=== PATIENT | female | born 1990 | race Two or more races ===

== ENCOUNTER 2020-06-07 13:31 | Emergency (ER) | payer MEDICAID ==
[~2020-06-07] VITALS: Ht 154.9 cm; Wt 76.2 kg
[2020-06-07 13:50] VITALS: BP 122/85
[2020-06-07] MEDS ORDERED: KETOROLAC TROMETH 60MG/2ML VIAL IM ONE (15:30)
== END 2020-06-07 17:37 | disposition home or self-care (01) ==
LOC: ER 13:31
DX: S39.012A Strain of muscle, fascia and tendon of lower back, initial encounter (principal); R10.31 Right lower quadrant pain; Z90.49 Acquired absence of other specified parts of digestive tract; X50.1XXA Overexertion from prolonged static or awkward postures, initial encounter; Y93.89 Activity, other specified; Y92.89 Other specified places as the place of occurrence of the external cause; Y99.8 Other external cause status
CPT/HCPCS: 74176; 81002; 81025; 96372; 99284; J1885

== ENCOUNTER 2020-07-24 16:22 | Emergency (ER) | payer MEDICAID ==
[~2020-07-24] VITALS: Ht 154.9 cm; Wt 81.6 kg
[2020-07-24 16:24] VITALS: BP 131/85
[2020-07-24] MEDS ORDERED: KETOROLAC TROMETH 60MG/2ML VIAL IM ONE (17:30)
== END 2020-07-24 18:16 | disposition home or self-care (01) ==
LOC: ER 16:22
DX: S83.92XA Sprain of unspecified site of left knee, initial encounter (principal); G57.32 Lesion of lateral popliteal nerve, left lower limb; Z90.49 Acquired absence of other specified parts of digestive tract; X58.XXXA Exposure to other specified factors, initial encounter; Y93.01 Activity, walking, marching and hiking; Y92.89 Other specified places as the place of occurrence of the external cause; Y99.8 Other external cause status
CPT/HCPCS: 73562; 93971; 96372; 99284; J1885

== ENCOUNTER 2021-04-03 12:33 | Emergency (ER) | payer MEDICAID, OTHER ==
[~2021-04-03] VITALS: Ht 154.9 cm; Wt 81.6 kg
[2021-04-03] MEDS ORDERED: SODIUM CHLORIDE 0.9% 1,000 ML IVB ONE (12:45)
[2021-04-03] MEDS ORDERED: KETOROLAC TROMETH 30 MG/ML 1ML VIAL IV ONE (12:45)
[2021-04-03 13:23] LABS: Urine Bacteria FEW /hpf (None Seen); Urine Blood TRACE /uL (Negative); Urine Specific Gravity 1.021 (1.001-1.035); Urine WBC 20 /hpf (0 - 5)
[2021-04-03 13:37] LABS: Basophils # (auto) 0.1 10 ^3/uL (0-0.2); Basophils % (auto) 0.8 % (0.0-2.0); Eosinophils # (auto) 0.2 10 ^3/uL (0-0.8); Eosinophils % (auto) 2.1 % (0.0-7.0); Hematocrit 38.4 % (36.0-46.0); Hemoglobin 12.8 g/dL (12.2-16.2); Lymphocytes # (auto) 2.8 10 ^3/uL (0.4-5.4); Lymphocytes % (auto) 31.5 % (10.0-50.0); Mean Corpuscular Hemoglobin 29.2 pg (28.0-32.0); Mean Corpuscular Hgb Conc. 33.3 g/dL (32.0-36.0); Mean Corpuscular Volume 87.7 fL (80.0-100.0); Monocytes # (auto) 0.5 10 ^3/uL (0-1.3); Monocytes % (auto) 6.2 % (0.0-12.0); Neutrophils # (auto) 5.2 10 ^3/uL (1.6-8.6); Neutrophils % (auto) 59.4 % (37.0-80.0); Nucleated Red Blood Cells % 0.1 %; Red Blood Cells 4.38 10^6/uL (4.0-5.20); Red Cell Distribution Width 13.5 % (11.8-14.3); White Blood Cell 8.7 10^3/uL (4.4-10.8)
[2021-04-03 13:51] LABS: Albumin 3.1 g/dL (3.4-5.0); BUN/Creatinine Ratio 13.1; Calcium 8.9 mg/dL (8.5-10.1); Potassium 4.4 mmol/L (3.5-5.1)
[2021-04-03 14:19] LABS: Bilirubin, Total 0.3 mg/dL (0.2-1.0); Total Protein 7.3 g/dL (6.4-8.2)
[2021-04-03 15:17] VITALS: BP 112/72
== END 2021-04-03 15:19 | disposition home or self-care (01) ==
LOC: ER 12:33
DX: N39.0 Urinary tract infection, site not specified (principal); F17.210 Nicotine dependence, cigarettes, uncomplicated; Z87.442 Personal history of urinary calculi; Z90.49 Acquired absence of other specified parts of digestive tract; Z98.890 Other specified postprocedural states
CPT/HCPCS: 36415; 74176; 80053; 81001; 81025; 83690; 85025; 96361; 96374; 99284; J1885; J7030

== ENCOUNTER 2022-01-18 22:47 | Emergency (ER) | payer MEDICAID ==
[~2022-01-18] VITALS: Ht 154.9 cm; Wt 75.0 kg
[2022-01-18 22:47] VITALS: BP 127/86
[2022-01-19 00:43] LABS: Urine Bacteria NONE SEEN /hpf (None Seen); Urine Blood TRACE /uL (Negative); Urine Mucus FEW (None Seen); Urine Specific Gravity 1.027 (1.001-1.035); Urine WBC 134 /hpf (0 - 5)
== END 2022-01-19 05:00 | disposition left against medical advice (07) ==
LOC: ER 22:47
DX: R30.0 Dysuria (principal); Z53.21 Procedure and treatment not carried out due to patient leaving prior to being seen by health care provider
CPT/HCPCS: 81001

== ENCOUNTER 2022-10-18 11:15 | Emergency (ER) | payer MEDICAID ==
[~2022-10-18] VITALS: Ht 154.9 cm; Wt 81.0 kg
[2022-10-18 11:30] VITALS: BP 144/94
[2022-10-18] MEDS ORDERED: ACETAMINOPHEN 500 MG TAB PO ONE (13:00)
[2022-10-18] MEDS ORDERED: ALBU108A5 IN (13:48)
[2022-10-18] MEDS ORDERED: ACET1CAP14 PO (13:48)
[2022-10-18] MEDS ORDERED: AZITTAB PO (13:48)
== END 2022-10-18 13:59 | disposition home or self-care (01) ==
LOC: ER 11:15
DX: J06.9 Acute upper respiratory infection, unspecified (principal); F17.210 Nicotine dependence, cigarettes, uncomplicated; Z20.822 Contact with and (suspected) exposure to COVID-19; Z87.442 Personal history of urinary calculi; Z90.49 Acquired absence of other specified parts of digestive tract; Z98.890 Other specified postprocedural states
CPT/HCPCS: 36415; 71045; 87426; 87804

== ENCOUNTER 2022-10-22 13:35 | Emergency (ER) | payer MEDICAID ==
[~2022-10-22] VITALS: Ht 154.9 cm; Wt 81.6 kg
[~2022-10-22 13:35] MED LIST: ACET1CAP14 PO; ALBU108A5 IN; AZITTAB PO
[2022-10-22 14:31] VITALS: BP 137/86
[2022-10-22] MEDS ORDERED: CEPH-510 PO (16:15)
[2022-10-22] MEDS ORDERED: PROM1SOL4 PO (16:15)
== END 2022-10-22 16:44 | disposition home or self-care (01) ==
LOC: ER 13:35
DX: J20.9 Acute bronchitis, unspecified (principal); F17.210 Nicotine dependence, cigarettes, uncomplicated; R94.31 Abnormal electrocardiogram [ECG] [EKG]; Z90.49 Acquired absence of other specified parts of digestive tract; Z87.442 Personal history of urinary calculi
CPT/HCPCS: 93005

== ENCOUNTER 2023-07-23 16:42 | Emergency (ER) | payer MEDICAID ==
[~2023-07-23] VITALS: Ht 180.3 cm; Wt 88.5 kg
[~2023-07-23 16:42] MED LIST changes: +CEPH-510 PO; +PROM1SOL4 PO
[2023-07-23 17:38] LABS: Urine Bacteria NONE SEEN /hpf (None Seen); Urine Blood 2+ /uL (Negative); Urine Clarity HAZY (Clear); Urine Color Yellow (Yellow); Urine Mucus FEW (None Seen); Urine Protein, UAD TRACE (Negative); Urine Specific Gravity 1.019 (1.001-1.035); Urine Urobilinogen Normal (Negative); Urine WBC 35 /hpf (0 - 5)
[2023-07-23 18:48] VITALS: BP 120/79; PULSE 98; RESP 16; TEMP 99.7; O2SAT 98
[2023-07-23 19:42] LABS: COVID19 ANTIGEN SOFIA FIA NEGATIVE (NEGATIVE); Rapid Influenza A Negative (Negative); Rapid Influenza B Negative (Negative)
[2023-07-23] MEDS ORDERED: cefTRIAXone 1GM/50ML D5W 50 ML IV ONE (20:45)
[2023-07-23] MEDS ORDERED: KETOROLAC TROMETH 30 MG/ML 1ML VIAL IV ONE (20:45)
[2023-07-23] MEDS ORDERED: SODIUM CHLORIDE 0.9% 1,000 ML IV ONE (20:45)
[2023-07-23 20:58] LABS: Basophils # (auto) 0 10 ^3/uL (0-0.2); Basophils % (auto) 0.5 % (0.0-2.0); Eosinophils # (auto) 0 10 ^3/uL (0-0.8); Eosinophils % (auto) 0.7 % (0.0-7.0); Hematocrit 38.7 % (36.0-46.0); Hemoglobin 12.9 g/dL (12.2-16.2); Lymphocytes # (auto) 1.4 10 ^3/uL (0.4-5.4); Lymphocytes % (auto) 24.4 % (10.0-50.0); Mean Corpuscular Hemoglobin 28.8 pg (28.0-32.0); Mean Corpuscular Hgb Conc. 33.3 g/dL (32.0-36.0); Mean Corpuscular Volume 86.6 fL (80.0-100.0); Monocytes # (auto) 0.8 10 ^3/uL (0-1.3); Monocytes % (auto) 14.5 % (0.0-12.0); Neutrophils # (auto) 3.4 10 ^3/uL (1.6-8.6); Neutrophils % (auto) 59.9 % (37.0-80.0); Nucleated Red Blood Cells % 0.1 %; Red Blood Cells 4.47 10^6/uL (4.0-5.20); White Blood Cell 5.6 10^3/uL (4.4-10.8)
[2023-07-23 21:15] LABS: Alanine Aminotransferase 56 U/L (7-40); Albumin 4.6 g/dL (3.2-4.8); Alkaline Phosphatase 80 U/L (46-116); Anion Gap 7 (5-15); Aspartate Aminotransferase 42 U/L (13-40); Bilirubin, Total 0.4 mg/dL (0.2-1.0); Calcium 9.3 mg/dL (8.5-10.1); Carbon Dioxide 26 mmol/L (20-30); Chloride 104 mmol/L (98-107); Glucose 93 mg/dL (74-106); Potassium 3.5 mmol/L (3.5-5.1); Sodium 137 mmol/L (136-145); Total Protein 7.6 g/dL (5.7-8.2)
[2023-07-23 21:19] LABS: BUN/Creatinine Ratio 6.4 (10.0-20.0); Blood Urea Nitrogen < 5 mg/dL (9-23)
[2023-07-23] MEDS ORDERED: PHEN-1045 PO (21:30)
[2023-07-23] MEDS ORDERED: IBUP1TAB5 PO (21:30)
[2023-07-23] MEDS ORDERED: ZOFR4T PO (21:30)
[2023-07-23] MEDS ORDERED: CIP500T PO (21:30)
== END 2023-07-23 22:06 | disposition home or self-care (01) ==
LOC: ER 16:42
DX: N39.0 Urinary tract infection, site not specified (principal); R10.2 Pelvic and perineal pain; R50.9 Fever, unspecified; F17.210 Nicotine dependence, cigarettes, uncomplicated; Z87.442 Personal history of urinary calculi; Z98.890 Other specified postprocedural states; Z20.822 Contact with and (suspected) exposure to COVID-19
CPT/HCPCS: 36415; 76775; 76830; 76856; 80053; 81001; 84702; 85025; 87426; 87804; 96360; 99284; J0696; J1885; J7030

== ENCOUNTER 2023-08-15 08:14 | Inpatient (IN) | payer MEDICAID ==
[~2023-08-15] VITALS: Ht 154.9 cm; Wt 89.1 kg
[~2023-08-15 08:14] MED LIST changes: +CIP500T PO; +IBUP1TAB5 PO; +PHEN-1045 PO; +ZOFR4T PO
[2023-08-15 08:38] LABS: Basophils # (auto) 0 10 ^3/uL (0-0.2); Basophils % (auto) 0.4 % (0.0-2.0); Eosinophils # (auto) 0.3 10 ^3/uL (0-0.8); Hematocrit 39.7 % (36.0-46.0); Hemoglobin 13.4 g/dL (12.2-16.2); Lymphocytes # (auto) 2.9 10 ^3/uL (0.4-5.4); Mean Corpuscular Hgb Conc. 33.7 g/dL (32.0-36.0); Mean Corpuscular Volume 86.1 fL (80.0-100.0); Monocytes # (auto) 0.6 10 ^3/uL (0-1.3); Monocytes % (auto) 6.6 % (0.0-12.0); Neutrophils # (auto) 5.5 10 ^3/uL (1.6-8.6); Red Blood Cells 4.61 10^6/uL (4.0-5.20); Red Cell Distribution Width 13.7 % (11.8-14.3); White Blood Cell 9.3 10^3/uL (4.4-10.8)
[2023-08-15 08:57] LABS: Alanine Aminotransferase 52 U/L (7-40); Albumin 4.5 g/dL (3.2-4.8); Alkaline Phosphatase 78 U/L (46-116); Anion Gap 8 (5-15); Aspartate Aminotransferase 35 U/L (13-40); BUN/Creatinine Ratio 11.3 (10.0-20.0); Bilirubin, Total 0.5 mg/dL (0.2-1.0); Blood Urea Nitrogen 8 mg/dL (9-23); Calcium 9.5 mg/dL (8.5-10.1); Carbon Dioxide 25 mmol/L (20-30); Chloride 108 mmol/L (98-107); Glucose 86 mg/dL (74-106); Potassium 3.6 mmol/L (3.5-5.1); Sodium 141 mmol/L (136-145); Total Protein 7.1 g/dL (5.7-8.2)
[2023-08-15 09:16] LABS: Lipase 60 U/L (12-53)
[2023-08-15 09:18] LABS: Urine Bacteria NONE SEEN /hpf (None Seen); Urine Blood 1+ /uL (Negative); Urine Clarity HAZY (Clear); Urine Color Yellow (Yellow); Urine Mucus FEW (None Seen); Urine Protein, UAD 1+ (Negative); Urine Specific Gravity 1.035 (1.001-1.035); Urine Urobilinogen Normal (Negative); Urine WBC 18 /hpf (0 - 5)
[2023-08-15 09:24] LABS: Amphetamine Screen, Urine Neg (NEGATIVE)
[2023-08-15 09:26] LABS: Barbiturate Scree,Urine Neg (NEGATIVE); Benzodiazephine Screen, Urine Neg (NEGATIVE); Cannabinoid Screen, Urine Neg (NEGATIVE); Cocaine Screen, Urine Neg (NEGATIVE); Opiate Scree,Urine Neg (NEGATIVE); Phencyclidine Screen, Urine Neg (NEGATIVE)
[2023-08-15] MEDS: cefTRIAXone SOD 1,000 MG VL IM ONE (10:55)
[2023-08-15 14:28] VITALS: PULSE 83; RESP 18; O2SAT 98
[2023-08-15] MEDS ORDERED: DOCUSATE SOD 100 MG CAP PO PRN (14:45)
[2023-08-15] MEDS: cefTRIAXone 1GM/50ML D5W 50 ML IV ONE (15:27)
[2023-08-15] MEDS: SODIUM CHLORIDE 0.9% 1,000 ML IV SCH (17:27)
[2023-08-15] MEDS: ONDANSETRON HCL 4 MG/2 ML VIAL IV PRN (17:29)
[2023-08-15] MEDS: MORPHINE SULFATE INJ 2 MG/ml SYRG IV PRN (17:31)
[2023-08-15] MEDS: DICYCLOMINE HCL 10 MG CAP PO SCH (18:12)
[2023-08-15] MEDS: metroNIDAZOLE 500MG/100ML 100 ML IV SCH (22:49)
[2023-08-16 01:50] VITALS: PULSE 63; RESP 17; O2SAT 97
[2023-08-16 06:08] LABS: Basophils # (auto) 0.1 10 ^3/uL (0-0.2); Basophils % (auto) 0.9 % (0.0-2.0); Eosinophils # (auto) 0.4 10 ^3/uL (0-0.8); Eosinophils % (auto) 3.7 % (0.0-7.0); Hematocrit 34.7 % (36.0-46.0); Hemoglobin 11.4 g/dL (12.2-16.2); Lymphocytes # (auto) 2.6 10 ^3/uL (0.4-5.4); Lymphocytes % (auto) 27.1 % (10.0-50.0); Mean Corpuscular Hemoglobin 28.3 pg (28.0-32.0); Mean Corpuscular Volume 85.7 fL (80.0-100.0); Monocytes # (auto) 0.6 10 ^3/uL (0-1.3); Monocytes % (auto) 5.7 % (0.0-12.0); Neutrophils # (auto) 6.1 10 ^3/uL (1.6-8.6); Neutrophils % (auto) 62.6 % (37.0-80.0); Red Blood Cells 4.04 10^6/uL (4.0-5.20); Red Cell Distribution Width 13.6 % (11.8-14.3); White Blood Cell 9.8 10^3/uL (4.4-10.8)
[2023-08-16 06:20] LABS: Alanine Aminotransferase 50 U/L (7-40); Albumin 3.7 g/dL (3.2-4.8); Alkaline Phosphatase 69 U/L (46-116); Anion Gap 6 (5-15); Aspartate Aminotransferase 32 U/L (13-40); BUN/Creatinine Ratio 8.6 (10.0-20.0); Blood Urea Nitrogen 6 mg/dL (9-23); Calcium 8.3 mg/dL (8.7-10.4); Carbon Dioxide 26 mmol/L (20-30); Chloride 107 mmol/L (98-107); Glucose 81 mg/dL (74-106); Lipase 45 U/L (12-53); Potassium 3.2 mmol/L (3.5-5.1); Sodium 139 mmol/L (136-145)
[2023-08-16 06:21] LABS: Bilirubin, Total 0.3 mg/dL (0.2-1.0); Total Protein 6.2 g/dL (5.7-8.2)
[2023-08-16 07:30] VITALS: PULSE 64; RESP 12; O2SAT 97
[2023-08-16] MEDS: cefTRIAXone 1GM/50ML D5W 50 ML IV ONE (13:24)
[2023-08-16 15:39] VITALS: BP 103/64; PULSE 66; RESP 17; TEMP 98.4; O2SAT 98
[2023-08-16] MEDS: POTASSIUM CHL 20 Meq TABLET PO ONE (18:17)
[2023-08-16 20:00] VITALS: BP 99/46; PULSE 73; RESP 16; TEMP 98; O2SAT 96
[2023-08-16 22:00] VITALS: BP 99/56; PULSE 73; RESP 16; TEMP 98; O2SAT 96
[2023-08-17 05:00] VITALS: BP 108/58; PULSE 65; RESP 16; TEMP 98.1; O2SAT 97
[2023-08-17 09:06] VITALS: BP 97/49; PULSE 78; RESP 15; TEMP 98.4; O2SAT 94
[2023-08-17] MEDS ORDERED: LEVO500T91 PO (09:41)
[2023-08-17] MEDS: cefTRIAXone 1GM/50ML D5W 50 ML IV SCH (09:44)
[2023-08-17] MEDS ORDERED: DICY10CA PO (09:48)
== END 2023-08-17 11:50 | disposition home or self-care (01) | DRG 249 ==
LOC: ER 08:14 → OVERFLOW 15:02 → EAST 08-16 15:34
PROVIDERS: ADMIT Nurse Practitioner Family; ATTEND Family Medicine
DX: K52.9 Noninfective gastroenteritis and colitis, unspecified (principal); E86.0 Dehydration; N83.201 Unspecified ovarian cyst, right side; N39.0 Urinary tract infection, site not specified; Z87.442 Personal history of urinary calculi; Z97.5 Presence of (intrauterine) contraceptive device; Z98.891 History of uterine scar from previous surgery
CPT/HCPCS: 36415; 74176; 76830; 76856; 80053; 80307; 81001; 83690; 84702; 85025; 87045; 87086; 87427; 87493; 96372; G0378; J0696; J2405; J3490

== ENCOUNTER 2023-10-21 19:09 | Emergency (ER) | payer MEDICAID ==
[~2023-10-21] VITALS: Ht 157.5 cm; Wt 88.1 kg
[~2023-10-21 19:09] MED LIST changes: +DICY10CA PO; +LEVO500T91 PO
[2023-10-21] MEDS: ONDANSETRON ODT 4 MG TAB PO ONE (20:43)
[2023-10-21] MEDS: HYDROmorphone HCL 2 MG/ML VL/or syr IM ONE (20:43)
[2023-10-21 20:50] LABS: Urine Bacteria FEW /hpf (None Seen); Urine Blood 2+ /uL (Negative); Urine Clarity Turbid (Clear); Urine Color Light-Orange (Yellow); Urine Mucus FEW (None Seen); Urine Protein, UAD 1+ (Negative); Urine Specific Gravity 1.028 (1.001-1.035); Urine Urobilinogen Normal (Negative); Urine WBC 101 /hpf (0 - 5); Urine pH 5.5 (5.0-9.0)
[2023-10-21 21:03] LABS: Basophils # (auto) 0.1 10 ^3/uL (0-0.2); Basophils % (auto) 0.6 % (0.0-2.0); Eosinophils # (auto) 0.4 10 ^3/uL (0-0.8); Eosinophils % (auto) 3.6 % (0.0-7.0); Hematocrit 39.1 % (36.0-46.0); Hemoglobin 13.3 g/dL (12.2-16.2); Lymphocytes # (auto) 3.4 10 ^3/uL (0.4-5.4); Mean Corpuscular Hemoglobin 29.1 pg (28.0-32.0); Mean Corpuscular Hgb Conc. 33.9 g/dL (32.0-36.0); Mean Corpuscular Volume 85.8 fL (80.0-100.0); Monocytes # (auto) 0.7 10 ^3/uL (0-1.3); Monocytes % (auto) 6.9 % (0.0-12.0); Neutrophils # (auto) 6.1 10 ^3/uL (1.6-8.6); Neutrophils % (auto) 56.9 % (37.0-80.0); Nucleated Red Blood Cells % 0.1 %; Red Blood Cells 4.56 10^6/uL (4.0-5.20); Red Cell Distribution Width 13.7 % (11.8-14.3); White Blood Cell 10.7 10^3/uL (4.4-10.8)
[2023-10-21 21:21] LABS: Alanine Aminotransferase 41 U/L (7-40); Albumin 4.5 g/dL (3.2-4.8); Alkaline Phosphatase 71 U/L (46-116); Anion Gap 8 (5-15); Aspartate Aminotransferase 28 U/L (13-40); BUN/Creatinine Ratio 10.3 (10.0-20.0); Bilirubin, Total 0.3 mg/dL (0.2-1.0); Blood Urea Nitrogen 8 mg/dL (9-23); Calcium 9.5 mg/dL (8.7-10.4); Carbon Dioxide 24 mmol/L (20-30); Chloride 107 mmol/L (98-107); Glucose 100 mg/dL (74-106); Lipase 38 U/L (12-53); Potassium 3.4 mmol/L (3.5-5.1); Sodium 139 mmol/L (136-145); Total Protein 7.5 g/dL (5.7-8.2)
[2023-10-21] MEDS ORDERED: BACDST PO (22:22)
[2023-10-21] MEDS ORDERED: ACE3T PO (22:22)
[2023-10-21] MEDS ORDERED: IBUP-1455 PO (22:22)
[2023-10-21 22:55] VITALS: TEMP 97.6
[2023-10-21] MEDS: SULFAMETHOX W/TRIMETH(800/160MG) DS TAB PO ONE (22:57)
[2023-10-21 22:58] VITALS: O2SAT 95
[2023-10-21 23:00] VITALS: BP 128/76; PULSE 76; RESP 18
[2023-10-21] MEDS: KETOROLAC TROMETH 60MG/2ML VIAL IM ONE (23:56)
== END 2023-10-22 00:03 | disposition home or self-care (01) ==
LOC: ER 19:09
DX: N39.0 Urinary tract infection, site not specified (principal); F17.210 Nicotine dependence, cigarettes, uncomplicated; Z32.02 Encounter for pregnancy test, result negative; Z90.49 Acquired absence of other specified parts of digestive tract; Z87.442 Personal history of urinary calculi
CPT/HCPCS: 36415; 74176; 80053; 81001; 81025; 83690; 85025; 96372; 99285; J1170; J1885; Q0162

== ENCOUNTER 2023-10-26 20:27 | Emergency (ER) | payer MEDICAID ==
[~2023-10-26] VITALS: Ht 157.5 cm; Wt 88.1 kg
[~2023-10-26 20:27] MED LIST changes: +ACE3T PO; +BACDST PO; +IBUP-1455 PO
[2023-10-26 22:08] LABS: Basophils # (auto) 0.1 10 ^3/uL (0-0.2); Basophils % (auto) 0.7 % (0.0-2.0); Eosinophils # (auto) 0.5 10 ^3/uL (0-0.8); Eosinophils % (auto) 4.1 % (0.0-7.0); Hematocrit 38.1 % (36.0-46.0); Hemoglobin 12.8 g/dL (12.2-16.2); Lymphocytes # (auto) 3.9 10 ^3/uL (0.4-5.4); Lymphocytes % (auto) 33.8 % (10.0-50.0); Mean Corpuscular Hgb Conc. 33.5 g/dL (32.0-36.0); Mean Corpuscular Volume 86.7 fL (80.0-100.0); Monocytes # (auto) 0.7 10 ^3/uL (0-1.3); Monocytes % (auto) 6.5 % (0.0-12.0); Neutrophils # (auto) 6.3 10 ^3/uL (1.6-8.6); Neutrophils % (auto) 54.9 % (37.0-80.0); Red Cell Distribution Width 13.8 % (11.8-14.3); White Blood Cell 11.4 10^3/uL (4.4-10.8)
[2023-10-26 22:23] LABS: INR 0.96 (0.9-1.15); Partial Thromboplastin Time 27.3 SEC (24.5-34.5); Prothrombin Time 10.2 sec (9.3-11.8)
[2023-10-26 22:29] LABS: Alanine Aminotransferase 32 U/L (7-40); Albumin 4.5 g/dL (3.2-4.8); Alkaline Phosphatase 78 U/L (46-116); Anion Gap 7 (5-15); Aspartate Aminotransferase 22 U/L (13-40); BUN/Creatinine Ratio 14.4 (10.0-20.0); Blood Urea Nitrogen 13 mg/dL (9-23); Calcium 9.2 mg/dL (8.7-10.4); Carbon Dioxide 23 mmol/L (20-30); Chloride 106 mmol/L (98-107); Glucose 85 mg/dL (74-106); Lipase 43 U/L (12-53); Potassium 3.9 mmol/L (3.5-5.1); Sodium 136 mmol/L (136-145)
[2023-10-26 22:30] LABS: Bilirubin, Total 0.2 mg/dL (0.2-1.0); Total Protein 7.4 g/dL (5.7-8.2)
[2023-10-26 22:48] LABS: Urine Bacteria FEW /hpf (None Seen); Urine Blood Negative /uL (Negative); Urine Budding Yeast OCCASIONAL /hpf (None Seen); Urine Clarity Turbid (Clear); Urine Color Light-Yellow (Yellow); Urine Protein, UAD TRACE (Negative); Urine Specific Gravity 1.026 (1.001-1.035); Urine Urobilinogen Normal (Negative); Urine WBC 41 /hpf (0 - 5)
[2023-10-27 01:50] VITALS: BP 120/75; PULSE 78; RESP 18; TEMP 98.5; O2SAT 98
[2023-10-27] MEDS: SODIUM CHLORIDE 0.9% 1,000 ML IVB ONE (02:01)
[2023-10-27] MEDS ORDERED: CEPH500T PO (02:10)
[2023-10-27] MEDS ORDERED: ACET500T58 PO (02:10)
[2023-10-27] MEDS ORDERED: PHEN95TA10 PO (02:10)
== END 2023-10-27 02:56 | disposition home or self-care (01) ==
LOC: ER 20:27
DX: N39.0 Urinary tract infection, site not specified (principal); N83.201 Unspecified ovarian cyst, right side; F17.210 Nicotine dependence, cigarettes, uncomplicated; Z87.442 Personal history of urinary calculi; Z90.49 Acquired absence of other specified parts of digestive tract
CPT/HCPCS: 36415; 74176; 80053; 81001; 83605; 83690; 85025; 85610; 85730; 87040; 96360; 99284; J7030

== ENCOUNTER 2023-10-27 16:49 | Inpatient (IN) | payer MEDICAID ==
[~2023-10-27] VITALS: Ht 157.5 cm; Wt 90.0 kg
[~2023-10-27 16:49] MED LIST changes: +ACET500T58 PO; +CEPH500T PO; +PHEN95TA10 PO
[2023-10-27 18:41] LABS: Basophils # (auto) 0.1 10 ^3/uL (0-0.2); Basophils % (auto) 0.5 % (0.0-2.0); Eosinophils # (auto) 0.3 10 ^3/uL (0-0.8); Eosinophils % (auto) 1.8 % (0.0-7.0); Hematocrit 39.2 % (36.0-46.0); Hemoglobin 12.7 g/dL (12.2-16.2); Lymphocytes # (auto) 2.8 10 ^3/uL (0.4-5.4); Lymphocytes % (auto) 19.1 % (10.0-50.0); Mean Corpuscular Hemoglobin 28.1 pg (28.0-32.0); Mean Corpuscular Hgb Conc. 32.5 g/dL (32.0-36.0); Mean Corpuscular Volume 86.5 fL (80.0-100.0); Monocytes # (auto) 0.6 10 ^3/uL (0-1.3); Monocytes % (auto) 4.2 % (0.0-12.0); Neutrophils % (auto) 74.4 % (37.0-80.0); Red Blood Cells 4.53 10^6/uL (4.0-5.20); Red Cell Distribution Width 13.7 % (11.8-14.3); White Blood Cell 14.7 10^3/uL (4.4-10.8)
[2023-10-27 18:59] LABS: Alanine Aminotransferase 58 U/L (7-40); Albumin 4.4 g/dL (3.2-4.8); Alkaline Phosphatase 97 U/L (46-116); Anion Gap 9 (5-15); Aspartate Aminotransferase 85 U/L (13-40); BUN/Creatinine Ratio 9.6 (10.0-20.0); Blood Urea Nitrogen 8 mg/dL (9-23); Calcium 8.8 mg/dL (8.7-10.4); Carbon Dioxide 21 mmol/L (20-30); Chloride 106 mmol/L (98-107); Glucose 145 mg/dL (74-106); Lipase 36 U/L (12-53); Potassium 3.6 mmol/L (3.5-5.1); Sodium 136 mmol/L (136-145)
[2023-10-27 19:00] LABS: Bilirubin, Total 0.3 mg/dL (0.2-1.0); Total Protein 7.4 g/dL (5.7-8.2)
[2023-10-27] MEDS: MORPHINE SULFATE INJ 2 MG/ml SYRG IM ONE (19:35)
[2023-10-27] MEDS: MORPHINE SULFATE INJ 2 MG/ml SYRG ONE (19:36)
[2023-10-27] MEDS: ONDANSETRON ODT 4 MG TAB ONE (19:36)
[2023-10-27] MEDS: ONDANSETRON ODT 4 MG TAB PO ONE (19:36)
[2023-10-27 20:20] LABS: Amphetamine Screen, Urine Neg (NEGATIVE); Benzodiazephine Screen, Urine Neg (NEGATIVE)
[2023-10-27 20:21] LABS: Barbiturate Scree,Urine Neg (NEGATIVE); Cannabinoid Screen, Urine Neg (NEGATIVE); Cocaine Screen, Urine Neg (NEGATIVE); Opiate Scree,Urine Pos (NEGATIVE); Phencyclidine Screen, Urine Neg (NEGATIVE)
[2023-10-27 20:57] LABS: Urine Bacteria FEW /hpf (None Seen); Urine Blood Negative /uL (Negative); Urine Clarity Turbid (Clear); Urine Color Yellow (Yellow); Urine Mucus FEW (None Seen); Urine Protein, UAD 1+ (Negative); Urine Specific Gravity 1.028 (1.001-1.035); Urine Urobilinogen Normal (Negative); Urine WBC 33 /hpf (0 - 5); Urine pH 5.5 (5.0-9.0)
[2023-10-27] MEDS ORDERED: cefTRIAXone 2GM/50ML D5W 50 ML IV ONE (21:15)
[2023-10-27] MEDS: PHENAZOPYRIDINE HCL 100 MG TAB PO ONE (21:30)
[2023-10-27 21:38] VITALS: PULSE 80; RESP 18; O2SAT 96
[2023-10-27] MEDS: cefTRIAXone 1GM/50ML D5W 50 ML IV ONE ×2 (21:45)
[2023-10-27] MEDS ORDERED: DOCUSATE SOD 100 MG CAP PO PRN (22:30)
[2023-10-27 22:32] VITALS: PULSE 75; RESP 14; O2SAT 97
[2023-10-27] MEDS: SODIUM CHLORIDE 0.9% 1,000 ML IV SCH (23:12)
[2023-10-27] MEDS ORDERED: NITROGLYCERIN 0.4 MG SL TAB SL PRN (23:15)
[2023-10-27] MEDS ORDERED: MORPHINE SULFATE INJ 2 MG/ml SYRG IV PRN (23:15)
[2023-10-28] MEDS: ONDANSETRON HCL 4 MG/2 ML VIAL IV PRN (00:17)
[2023-10-28] MEDS: MORPHINE SULFATE INJ 2 MG/ml SYRG IV PRN (00:17)
[2023-10-28 03:40] VITALS: BP_SYST 90; BP_DIAS 36; BP_DIAS 55; PULSE 75; RESP 17; TEMP 98; O2SAT 98
[2023-10-28 06:18] LABS: Basophils # (auto) 0 10 ^3/uL (0-0.2); Basophils % (auto) 0.5 % (0.0-2.0); Eosinophils # (auto) 0.2 10 ^3/uL (0-0.8); Eosinophils % (auto) 2.6 % (0.0-7.0); Hematocrit 34.7 % (36.0-46.0); Hemoglobin 11.7 g/dL (12.2-16.2); Lymphocytes # (auto) 2.7 10 ^3/uL (0.4-5.4); Lymphocytes % (auto) 30.8 % (10.0-50.0); Mean Corpuscular Hemoglobin 29.1 pg (28.0-32.0); Mean Corpuscular Hgb Conc. 33.7 g/dL (32.0-36.0); Mean Corpuscular Volume 86.4 fL (80.0-100.0); Monocytes # (auto) 0.6 10 ^3/uL (0-1.3); Monocytes % (auto) 6.9 % (0.0-12.0); Neutrophils # (auto) 5.3 10 ^3/uL (1.6-8.6); Neutrophils % (auto) 59.2 % (37.0-80.0); Red Blood Cells 4.01 10^6/uL (4.0-5.20); Red Cell Distribution Width 13.8 % (11.8-14.3); White Blood Cell 8.9 10^3/uL (4.4-10.8)
[2023-10-28 06:46] LABS: Alanine Aminotransferase 48 U/L (7-40); Alkaline Phosphatase 89 U/L (46-116); Anion Gap 9 (5-15); Aspartate Aminotransferase 41 U/L (13-40); BUN/Creatinine Ratio 8.8 (10.0-20.0); Blood Urea Nitrogen 7 mg/dL (9-23); Calcium 8.8 mg/dL (8.7-10.4); Carbon Dioxide 22 mmol/L (20-30); Chloride 107 mmol/L (98-107); Glucose 136 mg/dL (74-106); Potassium 3.3 mmol/L (3.5-5.1); Sodium 138 mmol/L (136-145)
[2023-10-28 06:47] LABS: Albumin 3.8 g/dL (3.2-4.8); Bilirubin, Total 0.3 mg/dL (0.2-1.0); Total Protein 6.3 g/dL (5.7-8.2)
[2023-10-28] MEDS: HYDROcodone-ACET 5/325MG TAB PO PRN (07:15)
[2023-10-28 07:30] VITALS: TEMP 36.7
[2023-10-28 09:00] VITALS: BP 107/56; PULSE 76; RESP 18; TEMP 98.2; O2SAT 98
[2023-10-28 13:00] VITALS: BP 106/48; PULSE 75; RESP 18; TEMP 97.5; O2SAT 96
[2023-10-28 17:00] VITALS: BP 106/75; PULSE 75; RESP 18; TEMP 97.9; O2SAT 96
[2023-10-28 20:12] VITALS: RESP 16
[2023-10-28] MEDS: IBUPROFEN 600 MG TAB PO PRN (20:52)
[2023-10-28] MEDS: cefTRIAXone 1GM/50ML D5W 50 ML IV SCH (23:30)
[2023-10-29 06:08] LABS: Basophils # (auto) 0.1 10 ^3/uL (0-0.2); Basophils % (auto) 0.9 % (0.0-2.0); Eosinophils # (auto) 0.4 10 ^3/uL (0-0.8); Eosinophils % (auto) 6.1 % (0.0-7.0); Hematocrit 35.9 % (36.0-46.0); Hemoglobin 12.1 g/dL (12.2-16.2); Lymphocytes # (auto) 2.9 10 ^3/uL (0.4-5.4); Lymphocytes % (auto) 46.4 % (10.0-50.0); Mean Corpuscular Hemoglobin 29.4 pg (28.0-32.0); Mean Corpuscular Hgb Conc. 33.6 g/dL (32.0-36.0); Mean Corpuscular Volume 87.5 fL (80.0-100.0); Monocytes # (auto) 0.5 10 ^3/uL (0-1.3); Neutrophils # (auto) 2.4 10 ^3/uL (1.6-8.6); Neutrophils % (auto) 38.6 % (37.0-80.0); Nucleated Red Blood Cells % 0.1 %; Red Blood Cells 4.11 10^6/uL (4.0-5.20); Red Cell Distribution Width 13.6 % (11.8-14.3); White Blood Cell 6.3 10^3/uL (4.4-10.8)
[2023-10-29 06:28] LABS: Anion Gap 6 (5-15); Carbon Dioxide 23 mmol/L (20-30); Chloride 107 mmol/L (98-107); Potassium 4.1 mmol/L (3.5-5.1); Sodium 136 mmol/L (136-145)
[2023-10-29 06:29] LABS: Calcium 9.1 mg/dL (8.5-10.1)
[2023-10-29 06:34] LABS: BUN/Creatinine Ratio 9.2 (10.0-20.0); Blood Urea Nitrogen 7 mg/dL (9-23); Glucose 111 mg/dL (74-106)
[2023-10-29 07:30] VITALS: TEMP 36.6
[2023-10-29 09:00] VITALS: BP 96/61; PULSE 65; RESP 16; TEMP 97.7; O2SAT 97
[2023-10-29 13:00] VITALS: BP 120/72; PULSE 71; RESP 18; TEMP 98.1; O2SAT 96
[2023-10-29] MEDS: OXYCODONE W/ ACETAMINOPHEN 5/325MG TABLET PO PRN (16:27)
[2023-10-29 17:00] VITALS: BP 105/60; PULSE 92; RESP 16; TEMP 98.2; O2SAT 96
[2023-10-29 20:00] VITALS: PULSE 81; RESP 16; TEMP 36.8
[2023-10-29 21:00] VITALS: BP 112/67; PULSE 75; RESP 20; TEMP 98.2; O2SAT 93
[2023-10-30 04:00] VITALS: BP 101/54; PULSE 56; RESP 21; TEMP 98; O2SAT 94
[2023-10-30 07:05] LABS: Basophils # (auto) 0.1 10 ^3/uL (0-0.2); Basophils % (auto) 0.8 % (0.0-2.0); Eosinophils # (auto) 0.5 10 ^3/uL (0-0.8); Hematocrit 37.9 % (36.0-46.0); Hemoglobin 12.8 g/dL (12.2-16.2); Lymphocytes # (auto) 3.3 10 ^3/uL (0.4-5.4); Lymphocytes % (auto) 34.4 % (10.0-50.0); Mean Corpuscular Hemoglobin 29.3 pg (28.0-32.0); Mean Corpuscular Hgb Conc. 33.8 g/dL (32.0-36.0); Mean Corpuscular Volume 86.7 fL (80.0-100.0); Monocytes # (auto) 0.7 10 ^3/uL (0-1.3); Monocytes % (auto) 7.3 % (0.0-12.0); Neutrophils # (auto) 5.1 10 ^3/uL (1.6-8.6); Neutrophils % (auto) 52.5 % (37.0-80.0); Nucleated Red Blood Cells % 0.1 %; Red Blood Cells 4.37 10^6/uL (4.0-5.20); Red Cell Distribution Width 13.2 % (11.8-14.3); White Blood Cell 9.7 10^3/uL (4.4-10.8)
[2023-10-30 07:27] LABS: Chloride 105 mmol/L (98-107); Potassium 3.9 mmol/L (3.5-5.1); Sodium 137 mmol/L (136-145)
[2023-10-30 07:28] LABS: Anion Gap 8 (5-15); Calcium 9.5 mg/dL (8.5-10.1); Carbon Dioxide 24 mmol/L (20-30)
[2023-10-30 07:33] LABS: BUN/Creatinine Ratio 15.3 (10.0-20.0); Blood Urea Nitrogen 11 mg/dL (9-23); Glucose 95 mg/dL (74-106)
[2023-10-30 08:05] VITALS: PULSE 77; RESP 16; O2SAT 97
[2023-10-30] MEDS: diphenhdrAMINE HCL 25 MG CAP PO ONE (08:19)
[2023-10-30 09:00] VITALS: BP 105/71; PULSE 77; RESP 16; TEMP 97.4; O2SAT 97
[2023-10-30 13:00] VITALS: BP 123/74; PULSE 80; RESP 16; TEMP 98.7; O2SAT 94
[2023-10-30 17:00] VITALS: BP 109/66; PULSE 89; RESP 16; TEMP 98.6; O2SAT 93
[2023-10-30 21:00] VITALS: BP 108/67; PULSE 76; RESP 20; TEMP 98; O2SAT 97
[2023-10-31] MEDS ORDERED: LOPERAMIDE HCL 2 MG CAP/TAB PO PRN (00:30)
[2023-10-31 00:59] VITALS: BP 122/71; PULSE 76; RESP 20; TEMP 98.3; O2SAT 97
[2023-10-31 04:45] VITALS: BP 107/71; PULSE 78; RESP 20; TEMP 98.2; O2SAT 96
[2023-10-31 06:31] LABS: Basophils # (auto) 0.1 10 ^3/uL (0-0.2); Basophils % (auto) 0.8 % (0.0-2.0); Eosinophils # (auto) 0.3 10 ^3/uL (0-0.8); Eosinophils % (auto) 4.1 % (0.0-7.0); Hematocrit 39.5 % (36.0-46.0); Hemoglobin 13.3 g/dL (12.2-16.2); Lymphocytes # (auto) 2.8 10 ^3/uL (0.4-5.4); Lymphocytes % (auto) 32.9 % (10.0-50.0); Mean Corpuscular Hemoglobin 29.2 pg (28.0-32.0); Mean Corpuscular Hgb Conc. 33.7 g/dL (32.0-36.0); Mean Corpuscular Volume 86.6 fL (80.0-100.0); Monocytes # (auto) 0.5 10 ^3/uL (0-1.3); Monocytes % (auto) 6.4 % (0.0-12.0); Neutrophils # (auto) 4.7 10 ^3/uL (1.6-8.6); Neutrophils % (auto) 55.8 % (37.0-80.0); Nucleated Red Blood Cells % 0.1 %; Red Blood Cells 4.56 10^6/uL (4.0-5.20); Red Cell Distribution Width 13.4 % (11.8-14.3); White Blood Cell 8.4 10^3/uL (4.4-10.8)
[2023-10-31 06:53] LABS: Calcium 9.3 mg/dL (8.5-10.1); Chloride 103 mmol/L (98-107); Potassium 3.8 mmol/L (3.5-5.1); Sodium 135 mmol/L (136-145)
[2023-10-31 06:54] LABS: Anion Gap 9 (5-15); Carbon Dioxide 23 mmol/L (20-30)
[2023-10-31 06:59] LABS: BUN/Creatinine Ratio 7.5 (10.0-20.0); Blood Urea Nitrogen 5 mg/dL (9-23); Glucose 107 mg/dL (74-106)
[2023-10-31 08:05] VITALS: BP 112/71; PULSE 74; RESP 15; TEMP 98.4; O2SAT 95
[2023-10-31 16:05] VITALS: BP 101/72; PULSE 81; RESP 16; TEMP 98; O2SAT 96
[2023-10-31 21:00] VITALS: BP 122/73; PULSE 72; RESP 18; TEMP 97.6; O2SAT 97
[2023-11-01] VITALS (7 sets, daily range): BP systolic 105–121; BP diastolic 68–77; PULSE 75–86; RESP 16–20; TEMP 97.4–98.9; O2SAT 94–99
[2023-11-01 07:02] LABS: Basophils # (auto) 0.1 10 ^3/uL (0-0.2); Basophils % (auto) 0.4 % (0.0-2.0); Eosinophils # (auto) 0.5 10 ^3/uL (0-0.8); Eosinophils % (auto) 3.5 % (0.0-7.0); Hematocrit 38.6 % (36.0-46.0); Hemoglobin 13.1 g/dL (12.2-16.2); Lymphocytes # (auto) 2.4 10 ^3/uL (0.4-5.4); Lymphocytes % (auto) 17.5 % (10.0-50.0); Mean Corpuscular Hemoglobin 29.2 pg (28.0-32.0); Mean Corpuscular Volume 85.8 fL (80.0-100.0); Monocytes # (auto) 0.9 10 ^3/uL (0-1.3); Monocytes % (auto) 6.7 % (0.0-12.0); Neutrophils % (auto) 71.9 % (37.0-80.0); Nucleated Red Blood Cells % 0.1 %; Red Blood Cells 4.49 10^6/uL (4.0-5.20); Red Cell Distribution Width 13.6 % (11.8-14.3); White Blood Cell 13.9 10^3/uL (4.4-10.8)
[2023-11-01 07:17] LABS: Anion Gap 7 (5-15); Calcium 9.5 mg/dL (8.5-10.1); Carbon Dioxide 24 mmol/L (20-30); Chloride 104 mmol/L (98-107); Sodium 135 mmol/L (136-145)
[2023-11-01 07:23] LABS: BUN/Creatinine Ratio 11.4 (10.0-20.0); Blood Urea Nitrogen 8 mg/dL (9-23); Glucose 110 mg/dL (74-106)
[2023-11-01] MEDS: DexAMETHasone SOD PHOS 10MG/1ML VIAL INJ IV SCH (20:43)
[2023-11-02 01:00] VITALS: BP 115/72; PULSE 78; RESP 18; TEMP 98.4; O2SAT 93
[2023-11-02 05:00] VITALS: BP 113/71; PULSE 76; RESP 18; TEMP 97.9; O2SAT 95
[2023-11-02 07:06] LABS: Basophils # (auto) 0 10 ^3/uL (0-0.2); Basophils % (auto) 0.4 % (0.0-2.0); Eosinophils # (auto) 0 10 ^3/uL (0-0.8); Eosinophils % (auto) 0.1 % (0.0-7.0); Hematocrit 39.7 % (36.0-46.0); Hemoglobin 13.3 g/dL (12.2-16.2); Lymphocytes # (auto) 1.3 10 ^3/uL (0.4-5.4); Lymphocytes % (auto) 14.3 % (10.0-50.0); Mean Corpuscular Hgb Conc. 33.6 g/dL (32.0-36.0); Mean Corpuscular Volume 86.3 fL (80.0-100.0); Monocytes # (auto) 0.1 10 ^3/uL (0-1.3); Neutrophils # (auto) 7.9 10 ^3/uL (1.6-8.6); Neutrophils % (auto) 84.2 % (37.0-80.0); Nucleated Red Blood Cells % 0.1 %; Red Cell Distribution Width 13.5 % (11.8-14.3); White Blood Cell 9.4 10^3/uL (4.4-10.8)
[2023-11-02 07:22] LABS: Anion Gap 8 (5-15); Carbon Dioxide 23 mmol/L (20-30); Chloride 105 mmol/L (98-107); Potassium 3.9 mmol/L (3.5-5.1); Sodium 136 mmol/L (136-145)
[2023-11-02 07:28] LABS: BUN/Creatinine Ratio 9.6 (10.0-20.0); Blood Urea Nitrogen 7 mg/dL (9-23); Glucose 163 mg/dL (74-106)
[2023-11-02 09:00] VITALS: BP 132/83; PULSE 97; RESP 20; TEMP 97.6; O2SAT 99
[2023-11-02] MEDS ORDERED: ONDANSETRON HCL 4 MG/2 ML VIAL ONE (10:51)
[2023-11-02] MEDS ORDERED: GLYCOPYRROLATE 0.2 MG/ML 1ML VIAL ONE (10:51)
[2023-11-02] MEDS ORDERED: MIDAZOLAM HCL 2MG/2ML 2ml VIAL (1mg/ml) ONE (10:51)
[2023-11-02] MEDS ORDERED: PROPOFOL 10 MG/ML 20 ML IV ONE (10:51)
[2023-11-02] MEDS ORDERED: KETAMINE 50mg/ML 1ml syringe ONE (10:51)
[2023-11-02] MEDS ORDERED: DEX4T PO (10:54)
[2023-11-02] MEDS ORDERED: PERCOT PO (10:54)
[2023-11-02] MEDS ORDERED: fentaNYL CITRATE 100 MCG/2 ML VL ONE (11:18)
[2023-11-02 13:00] VITALS: BP 125/70; PULSE 98; RESP 18; TEMP 97.5; O2SAT 95
[2023-11-02 17:00] VITALS: BP 111/65; PULSE 96; RESP 18; TEMP 98; O2SAT 95
[2023-11-02 21:00] VITALS: BP 126/78; PULSE 87; RESP 16; TEMP 98.1; O2SAT 96
== END 2023-11-02 23:33 | disposition home or self-care (01) | DRG 347 ==
LOC: EDBD 16:49 → EDUNIT# 16:49 → ER 16:49 → OVERFLOW 23:05 → WEST WING 10-28 03:14
PROVIDERS: ADMIT Internal Medicine Pulmonary Disease; ATTEND Internal Medicine Pulmonary Disease
DX: M51.26 Other intervertebral disc displacement, lumbar region (principal); D72.829 Elevated white blood cell count, unspecified; N83.291 Other ovarian cyst, right side; F17.210 Nicotine dependence, cigarettes, uncomplicated; N39.0 Urinary tract infection, site not specified; R73.9 Hyperglycemia, unspecified; Z90.49 Acquired absence of other specified parts of digestive tract; Z87.442 Personal history of urinary calculi; Z79.899 Other long term (current) drug therapy
CPT/HCPCS: 36415; 72148; 73721; 74176; 76856; 80048; 80053; 80307; 81001; 83036; 83690; 84702; 85025; 87040; 87045; 87081; 87086; 87427; 96365; 96372; G0378; J1100; J2250; J2405; J2704; Q0162

== ENCOUNTER 2024-02-10 15:49 | Emergency (ER) | payer MEDICAID ==
[~2024-02-10] VITALS: Ht 154.9 cm; Wt 57.9 kg
[~2024-02-10 15:49] MED LIST changes: -ACE3T PO; -ACET1CAP14 PO; -ACET500T58 PO; -ALBU108A5 IN; -AZITTAB PO; -BACDST PO; -CEPH-510 PO; -CEPH500T PO; -CIP500T PO; +DEX4T PO; -DICY10CA PO; -IBUP-1455 PO; -IBUP1TAB5 PO; -LEVO500T91 PO; +PERCOT PO; -PHEN-1045 PO; -PHEN95TA10 PO; -PROM1SOL4 PO; -ZOFR4T PO
[2024-02-10 17:04] VITALS: BP 128/94; TEMP 98.6
[2024-02-10 17:05] VITALS: PULSE 98; RESP 16; O2SAT 95
[2024-02-10] MEDS ORDERED: LIDOCAINE 1% HCL (LOCAL ANESTH.) INJ 20ML MDV IJ ONE (17:15)
[2024-02-10] MEDS: PENICILLIN G BENZ 1,200,000 UNITS/2 ML SYRG IM ONE (17:23)
[2024-02-10] MEDS: IBUPROFEN 800 MG TAB PO ONE (17:27)
[2024-02-10] MEDS ORDERED: PENI500T2 PO (17:40)
[2024-02-10] MEDS ORDERED: LIDO2SOL26 MT (17:40)
[2024-02-10 18:31] LABS: Rapid Strep A Screen-Throat Positive
== END 2024-02-10 18:03 | disposition home or self-care (01) ==
LOC: ER 15:49
DX: J03.00 Acute streptococcal tonsillitis, unspecified (principal); F17.210 Nicotine dependence, cigarettes, uncomplicated; Z88.6 Allergy status to analgesic agent; Z87.442 Personal history of urinary calculi
CPT/HCPCS: 87880; 96372; 99283; J0561

== ENCOUNTER 2024-07-05 17:43 | Emergency (ER) | payer MEDICAID ==
[~2024-07-05] VITALS: Ht 154.9 cm; Wt 88.5 kg
[~2024-07-05 17:43] MED LIST changes: +LIDO2SOL26 MT; +PENI500T2 PO
--- NOTE | 2024-07-05 18:16 | ED.PDOC ---
History of Present Illness HPI Comments 33 Y F with PMHX of gallstones and kidney stones presents to the ED with CC of flu-like symptoms. Patient states, that she has been experiencing flu-like symptoms with associated back pain x2days. Patient relays, that her was sick at home with similar symptoms and believes her symptoms are due to this. Patient vapes, denies ETOH consumption, or illicit drug use. Patient denies dysuria, hematuria, nasal congestion, body aches, or N/V/D. Time Seen by MD: 17:50 Primary Care Provider: UNKNOWN Reviewed Notes: Nurses Notes, Medications, Allergies Allergies: Coded Allergies: Ceftriaxone (Verified Allergy, Unknown, 10/30/23) Home Meds Active Scripts Ciprofloxacin Hcl (Cipro) 500 Mg Tab, 1 TAB PO BID, #14 TAB Prov:NILAY RÍOS MD 07/05/24 Lidocaine HCl (Mouth-Throat) (Lidocaine HCl Viscous) 2 % [place], 10 % MT TID, #120 ML Prov:JAIMIE HARDEN 02/10/24 Penicillin V Potassium (Veetids) 500 Mg Tab, 1 TAB PO QID, #28 TAB Prov:JAIMIE HARDEN 02/10/24 Oxycodone W/ Acetaminophen (Percocet 5/325MG) 1 Tab Tb, 1 TAB PO TIDP PRN, #12 TAB Prov:INGRID GALLARDO MD 11/02/23 Dexamethasone (Decadron) 4 Mg Tb, 4 MG PO ONCE PRN for 1 Day, #1 TAB Prov:INGRID GALLARDO MD 11/02/23 Information Source: Patient Mode of Arrival: Ambulatory Severity: Mild Timing: Days Duration: Since onset Prehospital treatment: None Past Medical History PAST MEDICAL HISTORY: Gallstones, Kidney Stones Surgical History: Cholecystectomy, MANAGER FOOD History: No Pertinent MANAGER FOOD History Family History Family History: Reviewed,noncontributory to illness, Family hx of Cancer Social History Smoker: Cigarettes Alcohol: Occasionally Drugs: Denies Drug Use Lives In: Home Constitutional: reports: chills, fever; denies: diaphoresis, fatigue, malaise, sweats, weakness, others EENTM: reports: throat pain, throat swelling; denies: blurred vision, double vision, ear bleeding, ear discharge, ear drainage, ear pain, ear ringing, eye pain, eye redness, hearing loss, mouth pain, mouth swelling, nasal discharge, nose bleeding, nose congestion, nose pain, photophobia, tearing, voice changes, others Respiratory: reports: cough; denies: hemoptysis, orthopnea, SOB at rest, shortness of breath, SOB with excertion, stridor, wheezing, others Cardiovascular: denies: chest pain, dizzy spells, diaphoresis, Dyspnea on exertion, edema, irregular heart beat, left arm pain, lightheadedness, palpitations, PND, syncope, others Gastrointestinal: denies: abdomen distended, abdominal pain, blood streaked bowels, constipated, diarrhea, dysphagia, difficulty swallowing, hematemesis, melena, nausea, poor appetite, poor fluid intake, rectal bleeding, rectal pain, vomiting, others Genitourinary: denies: abnormal vagina bleeding, burning, dyspareunia, dysuria, flank pain, frequency, hematuria, incontinence, pain, , vagina discharge, urgency, others Neurological: denies: dizziness, fainting, headache, left sided numbness, left sided weakness, numbness, paresthesia, pre-existing deficit, right sided numbness, right sided weakness, seizure, speech problems, tingling, tremors, weakness, others Musculoskeletal: reports: back pain (RIGHT SIDED ); denies: gout, joint pain, joint swelling, muscle pain, muscle stiffness, neck pain, others Integumetry: denies: bruises, change in color, change in hair/nails, dryness, laceration, lesions, lumps, rash, wounds, others Allergic/Immunocompromised: denies: Difficulty Healing, Frequent Infections, Hives, Itching, others Hematologic/Lymphatic: denies: anemia, blood clots, easy bleeding, easy bruising, swollen glands, others Endocrine: denies: excessive hunger, excessive sweating, excessive thirst, excessive urination, flushing, intolerance to cold, intolerance to heat, unexplained weight gain, unexplained weight loss, others Psychiatric: denies: anxiety, bipolar disorder, depression, hopeless, panic disorder, schizophrenia, sleepless, suicidal, others All Other Systems: Reviewed and Negative Physical Exam General Appearance: No Apparent Distress HEENT: Normal ENT Inspection, Pharynx Normal, TMs Normal Neck: Full Range of Motion, Non-Tender, Normal, Normal Inspection Respiratory: Chest Non-Tender, Lungs Clear, No Accessory Muscle Use, No Respiratory Distress, Normal Breath Sounds Cardiovascular: No Edema, No JVD, No Murmur, No Gallop, Normal Peripheral Pulses, Regular Rate/Rhythm Breast Exam: Deferred Gastrointestinal: No Organomegaly, Non Tender, No Pulsatile Mass, Normal Bowel Sounds, Soft Genitalia: Deferred Pelvic: Deferred Rectal: Deferred Extremities: No calf tenderness, Normal capillary refill, Normal inspection, Normal range of motion, Non-tender, No pedal edema Musculoskeletal : Apperance: Normal Neurologic: Alert, securities research analyst II-XII nml as Tested, No Motor Deficits, Normal Affect, Normal Mood, No Sensory Deficits Cerebellar Function: Normal Reflexes: Normal Skin: Dry, Normal Color, Warm Lymphatic: No Adenopathy Was a procedure done? Was a procedure done?: No Differential Dx Considerations may include: URI, PHARYNGITIS X-Ray, Labs, Meds, VS Vital Signs Date Time Temp Pulse Resp B/P (MAP) Pulse Ox O2 Delivery O2 Flow Rate FiO2 07/05/24 18:32 99.5 115 20 130/89 (103) 95 Lab Test 07/05/24 18:09 Range/Units Urine Color Yellow Yellow Urine Clarity Turbid H Clear Urine pH 5.5 5.0-9.0 Urine Specific [place] 1.041 H 1.001-1.035 Urine Protein 1+ H Negative Urine Ketones Negative Negative Urine Blood 2+ H Negative /uL Urine Nitrite Negative Negative Urine Bilirubin Negative Negative Urine Urobilinogen Normal Negative mg/dL Urine Leukocyte Esterase 3+ Negative /uL Urine RBC 36 0 - 4 /hpf Urine WBC 70 0 - 5 /hpf Urine Squamous Epithelial Cells Mod <5 /hpf Urine Bacteria None seen None Seen /hpf Urine Hyaline Casts Few 0 - 2 /lpf Urine Mucus Few None Seen Urine Glucose Normal Normal mg/dL Time of 1ST Reevaluation: 18:20 Reevaluation 1ST: Unchanged Patient Education/Counseling: Diagnosis, Treatment, Prognosis, Need For Follow Up Family Education/Counseling: No Family Present Additional Information - I reviewed the following notes from patient's past medical encounters: 02/10/24 DX: ACUTE STREPTOCOCCAL TONSILLITIS - The following tests were ordered, and results were reviewed by me: LABS - Additional information was gathered from interviewing the following independent Historian: MOTHER - I discussed treatments and results with medical personnel and: FAMILY Departure 1 Departure Time of Disposition: 20:24 Impression: Primary Impression: Viral syndrome Additional Impression: UTI (urinary tract infection) Qualified Codes: N30.00 - Acute cystitis without hematuria Disposition: HOME / SELF CARE / HOMELESS Condition: Fair e-Prescriptions Ciprofloxacin Hcl (Cipro) 500 Mg Tab 1 TAB PO BID, #14 TAB Prov: NILAY RÍOS MD 07/05/24 Discharged With: Self Critical Care Note Critical Care Time?: No Stability Stability form required: No Heart Score Heart Score: Heart Score Response (Comments) Value History N/A 0 EKG N/A 0 Age N/A 0 Risk Factors N/A 0 Troponin N/A 0 Total 0 I personally scribed for NILAY RÍOS MD ([email or web address]) on 07/05/24 at 18:16. Electronically submitted by Christina John ([employer]). I personally scribed for NILAY RÍOS MD ([email or web address]) on 07/05/24 at 18:18. Electronically submitted by Christina John ([employer]). I personally scribed for NILAY RÍOS MD ([email or web address]) on 07/05/24 at 18:24. Electronically submitted by Christina John ([employer]). NILAY RÍOS MD Jul 05, 2024 18:16
[2024-07-05 18:41] LABS: Urine Bacteria None Seen /hpf (None Seen)
[2024-07-05 19:05] LABS: Urine Blood 2+ /uL (Negative); Urine Clarity Turbid (Clear); Urine Color Yellow (Yellow); Urine Hyaline Cast FEW /lpf (0 - 2); Urine Mucus FEW (None Seen); Urine Protein, UAD 1+ (Negative); Urine Specific Gravity 1.041 (1.001-1.035); Urine Squamous Epithelial Cell MOD /hpf (<5); Urine Urobilinogen Normal (Negative); Urine WBC 70 /hpf (0 - 5); Urine pH 5.5 (5.0-9.0)
[2024-07-05] MEDS ORDERED: CIPR-173 PO (20:23)
[2024-07-05 23:20] VITALS: BP 106/68; PULSE 110; RESP 18; TEMP 102.1; O2SAT 93
== END 2024-07-05 23:30 | disposition home or self-care (01) ==
LOC: ER 17:43
DX: B34.9 Viral infection, unspecified (principal); N39.0 Urinary tract infection, site not specified; F17.210 Nicotine dependence, cigarettes, uncomplicated; Z90.49 Acquired absence of other specified parts of digestive tract; Z88.1 Allergy status to other antibiotic agents; Z79.899 Other long term (current) drug therapy
CPT/HCPCS: 81001; 87426